=== PATIENT | male | born 1975 | race Caucasian/White ===

== ENCOUNTER 2018-02-13 16:10 | Inpatient (IN) | payer OTHER ==
[~2018-02-13] VITALS: Ht 182.9 cm; Wt 75.3 kg
[~2018-02-13 16:10] MED LIST: DOXYCYCLINE 10100 MG PO; FLEXERIL PO; IBUPROFEN 800800 M1 PO; KEFLEX500 MG PO; NOHOMEMEDICATIONS
[2018-02-13] MEDS ORDERED: CELEXA20 MG PO (16:20)
--- NOTE | 2018-02-13 16:34 | NUR ---
UNABLE TO OBTAIN BP ON TRIAGE R/T MOVEMENT. WILL TRY AGAIN WHEN PT IS LESS AGITATED
[2018-02-13 16:35] LABS: HEMATOCRIT 56.4 % (42.0-52.0); HEMOGLOBIN 19.1 gm/dL (14.0-18.0); MCH 30.6 pg (26.0-34.0); MCHC 33.9 g/dL (28.0-37.0); MCV 90.3 fL (80.0-100.0); MPV 8.4 fl. (7.2-11.1); NUCLEATED RBCS 0 /100WBC; PLATELET COUNT* 502 thou/uL (150-400); RBC 6.25 mil/uL (4.50-6.00); RDW-CV 14.3 % (10.5-14.5); WBC 36.9 thou/uL (4.0-11.0)
[2018-02-13 16:55] LABS: ALBUMIN 6.1 g/dL (3.4-5.0); CREATININE 3.1 mg/dL (0.6-1.3); TOTAL BILIRUBIN 1.3 mg/dL (<0.1-1.0); TOTAL PROTEIN 10.1 g/dL (6.4-8.2)
[2018-02-13 17:01] LABS: CALCIUM 12.7 mg/dL (8.5-10.1)
[2018-02-13 17:05] LABS: ABSOLUTE LYMPHOCYTES 2.2 thou/uL (0.8-5.3); ABSOLUTE MONOCYTES 3.3 thou/uL (0.0-1.2); ABSOLUTE NEUTROPHILS 31.4 thou/uL (1.6-8.1)
[2018-02-13 17:06] LABS: PLATELET ESTIMATE INCREASED
[2018-02-13 17:25] LABS: BE -8.4 mmol/L (-2 to +3); HCO3 17.1 mmol/L (22.0-26.0); PCO2 35.9 mmHg (35.0-45.0); PO2 83.6 mmHg (75.0-100.0)
[2018-02-13 17:27] LABS: pH 7.295 (7.340-7.450)
[2018-02-13 18:16] LABS: URINE BILIRUBIN NEGATIVE (Negative); URINE BLOOD TRACE (Negative); URINE CLARITY CLEAR; URINE COLOR YELLOW; URINE GLUCOSE-RANDOM NEGATIVE (Negative); URINE KETONES TRACE (Negative); URINE LEUKOCYTES-REFLEX NEGATIVE (Negative); URINE NITRITE-REFLEX NEGATIVE (Negative); URINE PROTEIN 1+ (Negative); URINE UROBILINOGEN 0.2 E.U./dl (0.2-1.0)
[2018-02-13 18:23] LABS: AMP/METHAMP POSITIVE (Negative); BARBITURATES Negative (Negative); BENZODIAZEPINES Negative (Negative); COCAINE Negative (Negative); METHADONE Negative (Negative); OPIATES Negative (Negative); PCP Negative (Negative); THC POSITIVE (Negative)
--- NOTE | 2018-02-13 18:45 | NUR ---
PT WAS SPEAKING TO PEOPLE NO IN ROOM AND SAYING NONSENSICAL THINGS. PT BECAME MILDLY AGITATED AND JUMP OUT OF BED AND PULLING ON CATHETER. PT UNABLE TO SIT IN BED AND WAS BECOMING DIFFICULT TO REDIRECT. DONITA PIZARRO. PT CURRENTLY RESTING IN BED WITH EYES CLOSED, APPEARS COMFORTABLE, RESPIRATIONS EVEN AND UNLABORED.
[2018-02-13 20:44] VITALS: BP 106/75
[2018-02-13 20:46] LABS: INR 1.1; PROTIME 10.6 Seconds (9.20-11.50)
--- NOTE | 2018-02-13 22:00 | NUR ---
PATIENT AWAKE ORIENT X4. EXPERIENCING HALLUCINATIONS. TACHYCARDIC. CANALES IN PLACE. HEPARIN INFUSING STARTED IN ER. PT DENIES PAIN, N&V. PT SEEMS VERY AGITATED, RESTLESS, UNEASY. CONTINUES TO TAKE OFF MEDICAL EQUIPMENT. GAVE HIM SOME JELLO, WATER AND JUICE. TOLERATED WELL. PT SAYS THERE ARE CHILDREN IN HIS ROOM. THINKS THE BED RAIL IS TALKING TO HIM. HAS CONVERSATIONS TO HIMSELF. WHEN I WALK IN THE ROOM HE THINKS I AM HIS NEIGHBOR. PT IS BECOMING MORE UNEASY. WILL CONTINUE TO MONITOR CLOSELY.
[2018-02-13 22:13] LABS: HEMATOCRIT 46.7 % (42.0-52.0); MCH 30.5 pg (26.0-34.0); MCHC 33.4 g/dL (28.0-37.0); MCV 91.5 fL (80.0-100.0); MPV 8.1 fl. (7.2-11.1); NUCLEATED RBCS 0 /100WBC; PLATELET COUNT* 327 thou/uL (150-400); RDW-CV 14.2 % (10.5-14.5)
[2018-02-13 22:15] LABS: CREATININE 2.9 mg/dL (0.6-1.3); HEMOGLOBIN 15.6 gm/dL (14.0-18.0); POTASSIUM 4.8 mmol/L (3.5-5.1)
[2018-02-13 22:16] LABS: CALCIUM 9.4 mg/dL (8.5-10.1)
[2018-02-13 22:35] LABS: ABSOLUTE LYMPHOCYTES 1.3 thou/uL (0.8-5.3); ABSOLUTE MONOCYTES 0.8 thou/uL (0.0-1.2)
[2018-02-13 22:36] LABS: PLATELET ESTIMATE ADEQUATE
[2018-02-14] VITALS (9 sets, daily range): BP systolic 93–150; BP diastolic 45–84
[2018-02-14 02:59] LABS: HEMATOCRIT 45.2 % (42.0-52.0); HEMOGLOBIN 15.3 gm/dL (14.0-18.0); MCH 30.6 pg (26.0-34.0); MCHC 33.8 g/dL (28.0-37.0); MCV 90.5 fL (80.0-100.0); MPV 8.1 fl. (7.2-11.1); WBC 23.7 thou/uL (4.0-11.0)
[2018-02-14 04:00] LABS: ALBUMIN 4.2 g/dL (3.4-5.0); CALCIUM 9.2 mg/dL (8.5-10.1); CREATININE 2.3 mg/dL (0.6-1.3); MAGNESIUM 2.3 mg/dL (1.8-2.4); TOTAL BILIRUBIN 0.5 mg/dL (<0.1-1.0); TOTAL PROTEIN 7.1 g/dL (6.4-8.2); TROPONIN-I LEVEL 0.1 ng/mL (<0.06)
--- NOTE | 2018-02-14 06:15 | NUR ---
PATIENT CURRENTLY SLEEPING. HEMODYNAMICALLY STABLE. SR. VS WNL. URINE OUTPUT ADEQUATE. SITTER IN ROOM. PT CONTINUES TO HAVE RANDOM OUTBURST WHILE HE SLEEPS. GIVEN GEODON AND ATIVAN SCHEDUALED. SPOKE WITH DR. GIFFORD NO ORDERS RECIEVED. CONTINUE WITH CURRENT THERAPY. HEPARIN GTT INFUSING APPT THERAPEUTIC NO CHANGE IN DOSAGE NEEDED. FALL PRECAUTIONS IN PLACE. BED ALARM ON. CALL LIGHT WITHIN REACH. WILL CONTINUE TO MONITOR AND MAINTAIN PT SAFETY.
--- NOTE | 2018-02-14 11:12 | EKG ---
[place] [address] ELECTROCARDIOGRAM REPORT Name: JAREN LAZO Room: [address] ADM IN ..#: [id number] Admission: 02/13/18 Attend Phys: Ashly Reyes MD Discharge: Date of : 75 Report #: [id number] THIS REPORT FOR: //name// [facility] ED Test Date: 2018-02-13 Test Time: 16:38:52 Pat Name: JAREN VIOLET Department: Room: [facility] Gender: M E/M Engineer: SHILO : 1975 Requested By: Ashvin Carrillo Order Number: [id number] MD: Cornelius Terrazas Measurements Intervals [place] Rate: 129 P: 74 [place]: 110 QRS: -65 QRSD: 92 T: 62 QT: 314 QTc: 460 Interpretive Statements Sinus tachycardia Left anterior fascicular block RSR' in V1 or V2, right VCD or RVH ST elev, probable normal early repol pattern Compared to ECG 11/26/2014 16:57:09 Left anterior fascicular block now present RSR' in V1 or V2 now present Electronically Signed On 02-14-2018 11:12:13 CDT by Cornelius Terrazas [email or web address] <ELECTRONICALLY SIGNED> By: Cornelius Terrazas MD, [facility] 02/14/18 1112 1638 1638 Cornelius Terrazas MD, [facility] /EPI
--- NOTE | 2018-02-14 11:12 | EKG ---
[place] [address] ELECTROCARDIOGRAM REPORT Name: JAREN LAZO Room: [address] ADM IN ..#: [id number] Admission: 02/13/18 Attend Phys: Ashly Reyes MD Discharge: Date of : 75 Report #: [id number] THIS REPORT FOR: //name// [facility] ED Test Date: 2018-02-13 Test Time: 18:42:43 Pat Name: JAREN LAZO Department: Room: [facility] Gender: Refuse Driver: Mindy DOS SANTOS : 1975 Requested By: Ashvin Carrillo Order Number: [id number] MD: Cornleius Terrazas Measurements Intervals [place] Rate: 106 P: 49 [place]: 116 QRS: -47 QRSD: 102 T: 56 QT: 339 QTc: 451 Interpretive Statements Sinus tachycardia Probable left atrial enlargement Left axis deviation RSR' in V1 or V2, probably normal variant ST elev, probable normal early repol pattern Baseline wander in lead(s) V1,V2 Electronically Signed On 02-14-2018 11:12:39 CDT by Cornelius Terrazas [email or web address] <ELECTRONICALLY SIGNED> By: Cornelius Terrazas MD, FAC 02/14/18 1112 1842 1842 Cornelius Terrazas MD, [facility] /EPI
--- NOTE | 2018-02-14 11:45 | 2DMMODE ---
[place] [address] 2 D/M-MODE ECHOCARDIOGRAM Name: JAREN LAZO Room: [address] IN [facility]#: [id number] Admission: 02/13/18 Attend Phys: Ashly Reyes, Discharge: Date of : 75 Date of Service: 02/14/18 1145 Report #: [id number] THIS REPORT FOR: //name// APPROVED REPORT Study performed: 02/14/2018 09:49:03 EXAM: Comprehensive 2D, Doppler, and color-flow Echocardiogram Patient Location: In-Patient Room #: [facility] Status: routine BSA: 1.88 HR: 65 bpm BP: 106/75 mmHg Rhythm: NSR Other Information Study Quality: Good Indications Non STEMI 2D Dimensions LVEF(%): 59.47 (>50%) IVSd: 10.64 (7-11mm) LVOT Diam: 21.34 (18-24mm) LVDd: 51.54 mm PWd: 9.41 (7-11mm) LVDs: 35.16 (25-40mm) Aortic Root: 33.86 mm Miller's LVEF: 59.47 % Volumes Left Atrial Volume (Systole) LA ESV Index: 29.10 mL/m2 Aortic Valve AoV Peak Iván.: 1.25 m/s AO Peak Gr.: 6.22 mmHg LVOT Max P.42 mmHg AO Mean Gr.: 3.73 mmHg LVOT Mean P.20 mmHg LVOT Max V: 1.16 m/s AO V2 VTI: 27.58 cm LVOT Mean V: 0.66 m/s ANABEL (VTI): 3.23 cm2 LVOT V1 VTI: 24.92 cm Mitral Valve E/A Ratio: 1.63 [place] [address] 2 D/M-MODE ECHOCARDIOGRAM Name: JAREN LAZO Room: [address] IN [facility]#: [id number] Admission: 02/13/18 Attend Phys: Ashly Reyes, Discharge: Date of : 75 Date of Service: 02/14/18 1145 Report #: [id number] MV Decel. Time: 196.83 ms MV E Max Iván.: 0.66 m/s MV PHT: 57.08 ms MVA (PHT): 3.85 cm2 TDI E/Lateral E': 3.14 E/Medial E': 5.50 Medial E' Iván.: 0.12 m/s Lateral E' Iván.: 0.21 m/s Pulmonary Valve PV Peak Iván.: 0.86 m/s PV Peak Gr.: 2.93 mmHg Tricuspid Valve RAP Estimate: 5.00 mmHg TR Peak Gr.: 14.17 mmHg RVSP: 19.17 mmHg PA Pressure: 19.17 mmHg Left Ventricle The left ventricle is normal size. There is normal LV segmental wall motion. There is normal left ventricular wall thickness. Left ventricular systolic function is normal. The left ventricular ejection fraction is within the normal range. LVEF is 55-60%. The left ventricular diastolic function is normal. Right Ventricle The right ventricle is normal size. The right ventricular systolic function is normal. Atria Left atrium is mildly dilated. The right atrium size is normal. Aortic Valve Mild aortic valve sclerosis. No aortic regurgitation is present. There is no aortic valvular stenosis. Mitral Valve The mitral valve is normal in structure. Trace mitral regurgitation. No evidence of mitral valve stenosis. Tricuspid Valve The tricuspid valve is normal in structure. Trace tricuspid regurgitation. No pulmonary hypertension[place] [address] 2 D/M-MODE ECHOCARDIOGRAM Name: JAREN LAZO Room: [address]#: [id number] Admission: 02/13/18 Attend Phys: Ashly Reyes, Discharge: Date of : 75 Date of Service: 02/14/18 1145 Report #: [id number] Pulmonic valve is not well visualized. There is no pulmonic valvular regurgitation. Great Vessels The aortic root is normal in size. IVC is normal in size and collapses with >50% inspiration Pericardium There is no pericardial effusion. <Conclusion> Left ventricular systolic function is normal. The left ventricular ejection fraction is within the normal range. <ELECTRONICALLY SIGNED> By: Cornelius Terrazas MD, FACC 02/14/18 1145 1145 1145 Cornelius Terrazas MD, FACC /INF
--- NOTE | 2018-02-14 16:19 | NUR ---
INITIAL ASSESSMENT: Pt evaluated for d/c planning needs. Reviewed chart and spoke with nurse. Pt remains in the ICU and is confused. Pt apparently is homeless and has a history of meth and marijuana use. No family is present, nor has any family visited per nursing. Will wait until pt clears mentally.
[2018-02-14 17:52] LABS: ALBUMIN 3.8 g/dL (3.4-5.0); CALCIUM 8.8 mg/dL (8.5-10.1); CREATININE 1.3 mg/dL (0.6-1.3); MAGNESIUM 2.2 mg/dL (1.8-2.4); PHOSPHORUS* 2.4 mg/dL (2.5-4.9); POTASSIUM 3.5 mmol/L (3.5-5.1)
[2018-02-14 18:11] LABS: eGFR IF AFRICAN AMERICAN 31 (>59)
--- NOTE | 2018-02-14 18:28 | NUR ---
PT CARE ASSUMED AFTER REPORT. SR/ST ON MONITOR. IVF INFUSING. HEPARIN GTT D/C'D PER CARDIOLOGY. PT LETHARGIC, HALLUCINATING, AND CONFUSED THIS AM. STATED THAT HE WAS IN [place]. ALERT WITH MUCH LESS CONFUSION THIS PM. GOOD PO INTAKE WITH DINNER. DENIES PAIN. PROGRESSING TOWARDS GOALS. FALL PRECAUTIONS IN PLACE INCLUDING BED ALARM.
[2018-02-15] VITALS (10 sets, daily range): BP systolic 93–135; BP diastolic 40–96
[2018-02-15 03:54] LABS: HEMATOCRIT 42.9 % (42.0-52.0); HEMOGLOBIN 14.6 gm/dL (14.0-18.0); MCH 30.9 pg (26.0-34.0); MCHC 34.1 g/dL (28.0-37.0); MCV 90.6 fL (80.0-100.0); RBC 4.73 mil/uL (4.50-6.00); RDW-CV 13.9 % (10.5-14.5); WBC 14.4 thou/uL (4.0-11.0)
[2018-02-15 04:46] LABS: ALBUMIN 3.8 g/dL (3.4-5.0); POTASSIUM 4.3 mmol/L (3.5-5.1); TOTAL BILIRUBIN 0.5 mg/dL (<0.1-1.0); TOTAL PROTEIN 6.5 g/dL (6.4-8.2)
[2018-02-15 05:26] LABS: ALBUMIN 3.8 g/dL (3.4-5.0); POTASSIUM 4.3 mmol/L (3.5-5.1)
[2018-02-15 05:49] LABS: PHOSPHORUS* 3.4 mg/dL (2.5-4.9)
--- NOTE | 2018-02-15 05:51 | NUR ---
PATIENT PROGRESSING TOWARDS GOALS. ORIENT X4, SR, VS WNL, URINE OUPUT ADEQUATE NO ACUTE HEMODYNAMIC CHANGES OVER NIGHT. RENAL FUNCTION IMPROVING. RECEIVED FULL BED, ORAL CARE, LINEN CHANGE LAST NIGHT. PT ABLE TO ASSIST. REMOVED CANALES PER PT REQUEST. PT ABLE TO GET ON THE COMMODE TOLERATES WELL. HAS BEEN ABLE TO URINATE WITH NO COMPLICATIONS. PT OSEASIN SHOWED UP LAST NIGHT. GIRLFRIEND MEGA CHAMPION ALSO CAME HAD NO IDEA HE WAS IN OUR ICU. UPDATED ON CURRENT PT CARE. VOICED UNDERSTANDING. PT REFUSED SCHEDULED GEODON LAST NIGHT. STATED OTHER HOSPITALS AND DOCTORS HAVE TOLD HIM NOT TO TAKE THAT. AROUND 0130 PT BECAME INCREASINGLY UNSTEADY, UNABLE TO SLEEP,MORE AGITATED AND GETTING OUT BED, TAKING MEDICAL EQUIPMENT OFF. WENT AHEAD AND GAVE HIM THE GEODON. PT NOW SLEEPING, CALM, STAYING IN BED. BED IN LOWEST POSITION. CALL LIGHT WITHIN REACH. BED ALARM ON. WILL CONTINUE MONITORING.
--- NOTE | 2018-02-15 12:15 | NUR ---
PT'S GIRLFRIEND HERE AND TALKING WITH THE NURSE. SHE SAID PT IS NOT HOMELESS, HE WILL BE RETURNING HOME WITH HER. PT TO GET TELEPSYCH EVAL, WILL TALK WITH PT LATER.
--- NOTE | 2018-02-15 16:40 | NUR ---
pt transfered to room 223 via wheelchair AT 1600. TELE PSYCH CONSULT DONE AND RECOMMENDATIONS HAVE BEEN GIVEN TO DR. CASTILLO. PT SLEPT PRETTY MUCH THROUGHOUT THE DAY. PT IS VERY UNSTEADY ON HIS FEET. IT WAS REPORTED TO ME THAT HE IS IMPULSIVE TOO BUT HE DID NOT TRY AND GET OUT OF BED WITHOUT ASSISTANCE TODAY. PRN SITTER IF NEEDED WHEN PATIENT IS TRANSFERED. VSS THROUGHOUT THE DAY. PT REFUSED BREAKFAST AND LUNCH.
--- NOTE | 2018-02-15 17:32 | NUR ---
RECEIVED REPORT FROM DA IN ICU AND ASSUMED CARE OF PT @ 1600.PT IS A/O,BP SOFT @ 93/40.TRACING SB TO SR ON THE MONITOR.LUNG SOUNDS ARE CLEAR.PREVIOUS NURSE ASSESSMENT REVIEWED AND THIS NURSE AGREES WITH ASSESSMENT.IV PATENT WITH IVF INFUSING PER ORDERS.PT IS CALM AND SLEEPING.NO C/O PAIN AT TIME OF ASSESSMENT.PT IS UP WITH ONE ASSIST.PT LEFT RESTING IN BED WITH CALL LIGHT AND FALL PRECAUTIONS IN PLACE.WILL CONTINUE TO MONITOR FOR DURATION OF SHIFT.HOURLY ROUNDING COMPLETED FOR PT SAFETY.
--- NOTE | 2018-02-15 17:41 | CON ---
[address] [address] CONSULTATION Name: JAREN LAZO Room: [address] IN M.R.#: [id number] Admission: 02/13/18 Attend Phys: Ashly Reyes MD Discharge: Date of : 75 Report #: [id number] THIS REPORT FOR: //name// CC: [facility] physician/PCP Ashly Reyes Patient's Chart DATE OF SERVICE: 02/14/2018 HISTORY OF PRESENT ILLNESS: The patient is a 42-year-old white male who I was asked to see in the hospital today after he was noted to have an elevated troponin. The history is obtained from the current chart. Minimal old records available. There are no family members available. The patient is currently sleeping. He was arousable, but would not verbally answer any questions. He has been in the Emergency Room several times here at [place]. He fell and was dehydrated and had some back pain back in 2014 when he came to the Emergency Room. He was also in the Emergency Room in February 2015 with some swelling of his leg. He, however, has never been hospitalized. He came to the Emergency Room yesterday afternoon. He apparently is homeless at this time. He uses IV methamphetamines. He had just done IV methamphetamine 3 days ago. He also smokes marijuana. He came to Emergency Room very agitated, short of breath, confused. He stated he needs IV fluids. He has not slept. He has not eaten. He denied any chest pain and felt dehydrated. He denies any vomiting. The patient was felt to be overdosing and was admitted to the ICU. He is noted to have renal insufficiency, elevated troponin, acidotic. Because of the elevated troponin, I was asked to see him for further evaluation and treatment. PAST MEDICAL HISTORY: Otherwise unremarkable. He does have chronic back pain. MEDICATIONS: He is on no medications. FAMILY HISTORY: Cannot be obtained. SOCIAL HISTORY: He is basically homeless. REVIEW OF SYSTEMS: Cannot be obtained. PHYSICAL EXAMINATION: GENERAL: Revealed a middle-aged male, lying in the bed. His eyes are closed. He would follow commands, but not answer questions verbally. VITAL SIGNS: Initially in the Emergency Room, he had blood pressure of 100/60. It is about the same. Pulse is 90, he is afebrile. HEENT: He is anicteric. Conjunctivae pink. Mucous membranes moist. NECK: Veins do not appear distended. CHEST: Clear to auscultation. CARDIOVASCULAR: Regular rate and rhythm, [place] [address] CONSULTATION Name: JAREN LAZO Room: [address]#: [id number] Admission: 02/13/18 Attend Phys: Ashly Reyes MD Discharge: Date of : 75 Report #: [id number] ABDOMEN: Soft. EXTREMITIES: Had no edema. Dorsalis pedis pulse 2+ bilaterally. SKIN: Warm, dry. NEUROLOGIC: He would move all extremities. PSYCHIATRIC: Mood appears depressed. LABORATORY DATA: His ECG showed sinus tachycardia, septal Q-waves, no significant ST or T-wave changes. His workup so far, he has had a chest x-ray that showed normal heart size, clear lung shore. CT scan of the head without contrast showed no acute abnormality. His lab work, sodium 135, BUN 39, creatinine 2.9, SGOT 86. His troponin is 0.12. His white blood cell count is 23,000. He had a urine drug screen that is positive for methamphetamines and marijuana. Hemoglobin 15, platelet count 343,000. IMPRESSION AND RECOMMENDATIONS: 1. Marginal elevation of troponin. Suspect noncardiac. Recommend echo. 2. Methamphetamine abuse. 3. Acute renal injury. <ELECTRONICALLY SIGNED> By: Cornelius Terrazas MD, [facility] 02/15/18 1741 1029 [id number] Terrazas MD, FACC /nt
[2018-02-16] VITALS: BP 99/59
--- NOTE | 2018-02-16 01:20 | NUR ---
PATIENT RESTED IN BED, NO ACUTE CHANGES. PATIENT DID NOT SHOW SIGNS OF DISTRESS. FALL PRECAUTIONS IN PLACE, BED ALARM ON, CALL LIGHT WITH IN REACH, HOURLY ROUNDING OBSERVED.
[2018-02-16 04:00] VITALS: BP 107/58
[2018-02-16 08:00] VITALS: BP 102/58
--- NOTE | 2018-02-16 09:36 | NUR ---
ASSUMED PT CARE AT 0730, FULL ASSESMENT DONE CHARTED. PT ORIENTED X4, BUT IS DROWSY AND NOT INTERACTING WITH THIS RN VERY MUCH. ATTEMPTED TO ASK PT QUESTIONS, VERY MINIMAL ANSWERS RECIEVED. PT DENIES PAIN, DENIES ANXIETY BUT DID WANT SCHEDULED ATIVAN. VSS, SB IN THE 40-50'S ON THE MONITOR. PTS GF HERE THIS AM, ASKING ABOUT DISCHARGE. PT AND GF EDUCATED THAT DR HAS TO SEE PT STILL THIS AM. THEY VERBALIZED UNDERSTADING. WILL CONTINUE WITH PLAN OF CARE.
[2018-02-16] MEDS ORDERED: KEFLEX500 M1 PO (11:37)
[2018-02-16 11:39] VITALS: BP 102/58
--- NOTE | 2018-02-16 11:44 | NUR ---
PT ANXIOUS TO LEAVE, HE STATED HE WANTED TO LEAVE BEFORE THE DR CAME TO SEE HIM. DR STROUD SHOWED UP TO TALK TO PT THE PT WAS READY TO LEAVE. SCRIPTS WERE WRITTEN AND PT TOLD IT WOULD TAKE APPROX 5 MIN TO GET DISCHARGE DONE, PT AND GF NOTED TO BE LEAVING DOWN BACK STAIRS WHILE PAPER WORK WAS BEING WORKED ON. PT LEFT WITH OUT SCRIPTS AT APPROX 1142
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
== END 2018-02-16 11:43 | disposition left against medical advice (07) | DRG 871 ==
LOC: M.ERS 16:10 → M.ICU 18:00 → M.TBA-ER 18:00 → M.ICU 20:03 → M.2W 02-15 15:58
PROVIDERS: Emergency Medicine; Internal Medicine Nephrology; Nurse Practitioner Psychiatric/Mental Health; ADMIT Internal Medicine
DX: A41.9 Sepsis, unspecified organism (principal); I21.4 Non-ST elevation (NSTEMI) myocardial infarction; N17.9 Acute kidney failure, unspecified; M62.82 Rhabdomyolysis; E87.0 Hyperosmolality and hypernatremia; E83.52 Hypercalcemia; F17.210 Nicotine dependence, cigarettes, uncomplicated; G89.29 Other chronic pain; M54.9 Dorsalgia, unspecified; F15.10 Other stimulant abuse, uncomplicated; E86.0 Dehydration; F19.10 Other psychoactive substance abuse, uncomplicated; Z88.6 Allergy status to analgesic agent; Z88.2 Allergy status to sulfonamides; Z59.0 Homelessness; Z79.2 Long term (current) use of antibiotics; Z79.899 Other long term (current) drug therapy

== ENCOUNTER 2021-07-31 15:47 | Emergency (ER) | payer OTHER ==
[~2021-07-31] VITALS: Ht 182.9 cm; Wt 74.8 kg
[~2021-07-31 15:47] MED LIST changes: +CELEXA20 MG PO; +KEFLEX500 M1 PO
[2021-07-31 17:06] LABS: URINE BILIRUBIN NEGATIVE (Negative); URINE BLOOD NEGATIVE (Negative); URINE CLARITY CLEAR; URINE COLOR YELLOW; URINE GLUCOSE-RANDOM NEGATIVE (Negative); URINE KETONES NEGATIVE (Negative); URINE LEUKOCYTES-REFLEX NEGATIVE (Negative); URINE NITRITE-REFLEX NEGATIVE (Negative); URINE PROTEIN NEGATIVE (Negative); URINE UROBILINOGEN 0.2 E.U./dl (0.2-1.0)
[2021-07-31 17:13] LABS: AMP/METHAMP POSITIVE (Negative); BARBITURATES Negative (Negative); BENZODIAZEPINES POSITIVE (Negative); COCAINE Negative (Negative); METHADONE Negative (Negative); OPIATES Negative (Negative); PCP Negative (Negative); THC POSITIVE (Negative)
[2021-07-31 17:46] LABS: ABSOLUTE BASOPHILS 0.1 thou/uL (0.0-0.2); ABSOLUTE EOSINOPHILS 0.3 thou/uL (0.0-0.7); ABSOLUTE MONOCYTES 0.7 thou/uL (0.0-1.2); ABSOLUTE NEUTROPHILS 6.1 thou/uL (1.6-8.1); BASOPHILS 1.2 %; EOSINOPHILS 2.7 %; HEMATOCRIT 39.9 % (42.0-52.0); HEMOGLOBIN 13.8 gm/dL (14.0-18.0); LYMPHOCYTES 21.8 %; MCH 30.9 pg (26.0-34.0); MCHC 34.6 g/dL (28.0-37.0); MCV 89.1 fL (80.0-100.0); MONOCYTES 8.1 %; MPV 7.2 fl. (7.2-11.1); NUCLEATED RBCS 0 /100WBC; PLATELET COUNT* 392 thou/uL (150-400); POLYS 66.2 %; RBC 4.47 mil/uL (4.50-6.00); RDW-CV 13.2 % (10.5-14.5); WBC 9.3 thou/uL (4.0-11.0)
[2021-07-31 17:53] LABS: CALCIUM 8.7 mg/dL (8.5-10.1); CREATININE 0.9 mg/dL (0.6-1.3)
[2021-07-31 17:56] LABS: ACETAMINOPHEN < 2 ug/mL (10-30); ALCOHOL < 10 mg/dL (<10); SALICYLATE < 2.8 mg/dL (2.8-20.0)
[2021-07-31 17:58] LABS: ALBUMIN 3.8 g/dL (3.4-5.0); TOTAL BILIRUBIN 0.6 mg/dL (<0.1-1.0); TOTAL PROTEIN 6.7 g/dL (6.4-8.2)
[2021-07-31 21:10] VITALS: BP 136/74
== END 2021-07-31 21:10 | disposition home or self-care (01) ==
LOC: M.ERS 15:47
PROVIDERS: Emergency Medicine Emergency Medical Services
DX: F15.10 Other stimulant abuse, uncomplicated (principal); Z20.822 Contact with and (suspected) exposure to COVID-19